=== PATIENT | female | born 1955 | race Hispanic/Latino ===

== ENCOUNTER 2021-07-04 20:52 | Emergency (ER) | payer BC, OTHER ==
--- OUTSIDE RECORDS SUMMARY | 2021-07-04 20:55 | XMS REPORT | Clinical Summary ---
:1955 Author Organization [facility] MD [facility] Address [address] [place] [address] Care Team Providers Name Role Phone Otilia Garcia NP Primary Care Provider Allergies No known active allergies Medications Medication Sig Dispensed Refills Start Date End Date Status atorvastatin (LIPITOR) Take 40 mg by 0 Active 40 mg tablet mouth daily. gabapentin (NEURONTIN) daily. 0 01/15/2021 Active 400 mg capsule Linzess 145 mcg capsule 0 07/29/2020 Active tiZANidine (ZANAFLEX) 4 daily. 0 01/30/2021 Active mg tablet Active Problems Problem Noted Date Personal history of malignant neoplasm of breast 11/08 Sinus node dysfunction 07/31/2015 Encounters Date Type Specialty Care Team Description 02/18/2021 Office Visit Survivorship - Breast Kelsey Garcia Person al history of [place] malignant neopl asm of breast 02/18/2021 Ancillary Procedure Radiology Kelsey Garcia Personal history of [place] malignant neopl asm of breast 02/18/2021 Travel after 07/04/2020 Surgical History Surgery Date Site/Laterality Comments MASTECTOMY 04/25/2008 - Right 04/24/2009 SECTION, CLASSIC SHOULDER SURGERY Left COLONOSCOPY [id number] At an outside fa cility HYSTERECTOMY Medical History Medical History Date Comments Hypercholesterolemia Breast cancer Family History Medical History Relation Name Comments Breast cancer Sister Relation Name Status Comments Sister Social History Tobacco Use Types Packs/Day Years Used Date Former Smoker Cigarettes Quit: 2008 Smokeless Tobacco: Never Used Alcohol Use Standard Drinks/Week Comments Yes 0 (1 standard drink = 0.6 oz pure alcoho l) Occasional Alcohol Habits Answer Date Recorded How often do you have a drink containing alcohol? Not asked How many drinks containing alcohol do you have on a typical Not asked day when you are drinking? How often do you have six or more drinks on one occasion? No t asked Comment: Occasional 11/08/2018 Sex Assigned at Date Recorded Not on file Job Start Date Occupation Industry Not on file Not on file Not on file Obstetrics History Last Filed Vital Signs Vital Sign Reading Time Taken Comments Blood Pressure 137/75 02/18/2021 3:40 PM CDT Pulse 66 02/18/2021 3:40 PM CDT Temperature - - Respiratory Rate 16 02/18/2021 3:40 PM CDT Oxygen Saturation - - Inhaled Oxygen Concentration - - Weight 64.5 kg (142 lb 3.2 oz) 02/18/2021 3:40 PM CDT Height 161 cm (5' 3.39") 02/18/2021 3:40 PM CDT Body Mass Index 24.88 02/18/2021 3:40 PM CDT Plan of Treatment Health Maintenance Due Date Last Done Comments COVID-19 Vaccination (1) 02/21/1961 Procedures Procedure Name Priority Date/Time Associated Diagnosis Comme nts MAMMO DIGITAL Routine 02/18/2021 3:20 PM Personal history of Results for this SCREENING LEFT W CDT malignant neoplasm proce malia are in RODRIGO of breast the results section. after 07/04/2020 Results Mammography Digital Screening Left with Rodrigo (02/18/2021 3:20 PM CDT) Specimen Impressions MAGVIEW - 02/18/2021 3:24 PM CDT There is no mammographic evidence of malignancy. Follow-up mammogram in 1 year is recomme nded. BI-RADS Category 2: Benign Finding(s) Narrative MAGVIEW - 02/18/2021 3:24 PM CDT CLINICAL INDICATION: Patient is a 65 year old female and is s een for screening. MAMMO DIGITAL SCREENING LEFT W RODRIGO Digital Mammogram evaluated with Compute r Aided Detection (CAD). COMPARISON: The present examination has been compare d to prior imaging studies performed at an outside location on 10/14/2015 and , and at [facility] on 11/08/2018, 11/21 and 02/13/2020. FINDINGS: There are scattered areas of fibroglandu lar density. There is a retro-pectoral silicone gel i mplant in the left breast. No dominant mass, suspicious calcificati ons, or architectural distortion is identified. Tomosynthesis performed in CC and MLO pr ojections. Procedure Note Myrna Eddy MD - 02/18/2021 CLINICAL INDICATION: Patient is a 65 year old female and is s een for screening. MAMMO DIGITAL SCREENING LEFT W RODRIGO Digital Mammogram evaluated with Compute r Aided Detection (CAD). COMPARISON: The present examination has been compare d to prior imaging studies performed at an outside location on 10/14/2015 and , and at [facility] on 11/08/2018, 11/21 and 02/13/2020. FINDINGS: There are scattered areas of fibroglandu lar density. There is a retro-pectoral silicone gel i mplant in the left breast. No dominant mass, suspicious calcificati ons, or architectural distortion is identified. Tomosynthesis performed in CC and MLO pr ojections. IMPRESSION: There is no mammographic evidence of mal ignancy. Follow-up mammogram in 1 year is recomme nded. BI-RADS Category 2: Benign Finding(s) Performing Organization Address City/State/ZIP Code Phon e Number [id number] after 07/04/2020 Insurance Payer Benefit Plan Subscriber ID Effective Phone Address Typ e / Group Dates MEDICARE MEDICARE PART [id number] 2021-Pres [phone] [facility] Medicare A AND B ent [address] SOLUTIONS [address] [place] [address] BLUE [place] PPO [id number] 2019-Prese [address] PPO [place] POS [place] [address] [place] [address] Guarantor Name Account Type Relation to Date of Phone Billing Patient Address Day,José Miguel Shelton Personal/Family Self 1955 [address] (Home) [place] [address] Day,José Miguel Shelton Personal/Family Self 1955 [address] [place] [address] José Miguel Wong Personal/Family Self 1955 [address] [place] [address] Care Teams 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
--- OUTSIDE RECORDS SUMMARY | 2021-07-04 20:55 | XMS REPORT | Continuity of Care Document ---
:[address] [facility] t Address [address] [place] [address] Care Team Providers Name Role Phone [phone] Primary Care Physician Unavailable Otilia Terrell NP Attending Clinician Otilia TERRELL Attending Clinician Unavailable Payers Payer Name Policy Type Policy Effective Date Expiration Date Sour ce Number MEDICAREMEDICARE PART [id number] 2021 MD Jan Perez AND 00:00:00 [id number] 2020- [phone] [address] [facility] [address]Medicare BLUE CROSS BLUE [id number] 2019 MD [facility] PPO 8 00:00:00 [id number] 0-[address], [place] [address]IYQ Problems Condition Condition Condition Status Onset Resolution Last Treating Co mments Source Name Details Category Date Date Treatment Clinician Date Personal Personal Disease Active history of history of 7-17 An derso malignant malignant 00:00: n neoplasm neoplasm 00 of breast of breast Sinus node Sinus node Disease Active Wes Ron dysfunctio dysfunctio 4-07 An derso n n 00:00: n 00 Allergies, Adverse Reactions, Alerts This patient has no known allergies or adverse reactions. Family History Family Member Diagnosis Comments Start Date Stop Date Source Natural sister Breast cancer MD Cliff lemos Social History Social Habit Start Date Stop Date Quantity Comments Source History [facility] MD [place] Alcohol Frequency History ARINADE MD [place] Alcohol Std Drinks History [facility] MD [place] Alcohol Binge History of tobacco Current smoker MD [place] use Alcohol intake 2021-02-25 2021-02-25 Current drinker of MD Montoya 00:00:00 00:00:00 alcohol (finding) History SDDE 2018-11-08 2018-11-08 Occasional MD [place] Alcohol Comment 00:00:00 00:00:00 Tobacco use and 2018-11-08 2018-11-08 Smokeless tobacco MD Montoya exposure 00:00:00 00:00:00 non-user Sex Ass[birth year] At [birth year] MD Arevalo on 00:00:00 00:00:00 Smoking Status Start Date Stop Date Source Ex-smoker 2018-11-08 00:00:00 2018-11-08 00:00:00 MD Clinton marquez Medications Ordered Filled Start Stop Current Ordering Indication Dosage Frequency Signature Comments Components Source Medication Medication Date Date Medication? Clinician (SIG) Name Name atorvastati Yes 40mg Take 40 mg MD serna (LIPITOR) 2-11 by mouth Cliff rso 40 mg 03:43: daily. n tablet 09 tiZANidine 2020-04 Yes daily. (ZANAFLEX) 0-08 Anderso 4 mg tablet 00:00: n 00 gabapentin Yes daily. (NEURONTIN) 9-23 Anderso 400 mg 00:00: n capsule 00 Linzess 145 Yes mcg capsule 4-06 Anderso 00:00: n 00 Vital Signs Vital Name Observation Time Observation Value Comments Source Systolic blood pressure 2021-02-18 20:40:00 137 mm[Hg] MD Montoya Diastolic blood pressure 2021-02-18 20:40:00 75 mm[Hg] MD Montoya Heart rate 2021-02-18 20:40:00 66 /min MD Clinton marquez Respiratory rate 2021-02-18 20:40:00 16 /min MD Ana castellano Body height 2021-02-18 20:40:00 161 cm MD Clinton marquez Body weight 2021-02-18 20:40:00 64.5 kg MD Clinton marquez BMI 2021-02-18 20:40:00 24.88 kg/m2 MD Clinton marquez Procedures Procedure Date / Time Performed Performing Clinician Sourc e MAMMO DIGITAL SCREENING LEFT W 2021-02-18 20:20:00 Kelsey Terrell MD Plan of Care Planned Activity Planned Date Details Comments Source Future Scheduled Test 1961-02-21 00:00:00 COVID-19 Vaccination MD Montoya (1) [code = COVID-19 Vaccination (1)] Encounters Start End Encounter Admission Attending Care Care Encounter Source Date/Time Date/Time Type Type Clinicians Facility Department ID 2021-02-18 2021-02-18 Outpatient KELSEY FOURNIER AIRAM ALEGRIA [id number] 15:27:05 16:07:50 Mickey o n 2021-02-18 2021-02-18 Outpatient KELSEY FOURNIER AIRAM ALEGRIA [id number] 13:52:51 13:52:51 Mickey o kareem 2020-02-13 2020-02-13 Outpatient KELSEY FOURNIER AIRAM ALEGRIA [id number] 11:18:27 11:18:27 Mickey o kareem 2020-02-13 2020-02-13 Outpatient KELSEY FOURNIER AIRAM ALEGRIA [id number] 09:57:18 11:14:39 Mickey o n Results This patient has no known results.
[2021-07-04 21:09] LABS: Urine Blood Negative (Negative); Urine Glucose Negative (Negative); Urine Protein Negative (Negative)
[2021-07-04] MEDS ORDERED: MORPHINE 4 MG/ML SYR ONE (22:08)
[2021-07-04] MEDS ORDERED: ONDANSETRON 4 MG/2 ML VIAL ONE (22:08)
[2021-07-04 22:17] LABS: Absolute Lymphocytes (CBC) 2.3 K/uL (0.7-4.9); Lymphocytes % 25.8 % (15.3-44.8); MPV 7.6 fL (7.6-11.3); RBC Red Blood Cell Count 4.08 M/uL (3.86-4.86)
[2021-07-04 22:34] LABS: ALT/SGPT 15 U/L (12-78); AST/SGOT 14 U/L (15-37); Albumin 3.6 g/dL (3.4-5.0); Alkaline Phosphatase 120 U/L (45-117); BUN Blood Urea Nitrogen 14 mg/dL (7-18); Bicarbonate 28 mmol/L (21-32); Bilirubin Total 0.3 mg/dL (0.2-1.0); Glucose Level 98 mg/dL (74-106); Lipase 77 U/L (73-393); Protein, Total 7.4 g/dL (6.4-8.2); Sodium Level 140 mmol/L (136-145)
[2021-07-04 22:35] LABS: Bilirubin Direct < 0.1 mg/dL (0-0.2)
--- NOTE | 2021-07-05 00:40 | EDPHYS ---
Physician Documentation [facility] Damari Name: José Miguel Wong Age: 66 yrs Sex: Female : 1955 Arrival Date: 07/04/2021 Time: 20:56 Bed 17 Private MD: ED Physician Don Alexander HPI: 07/04 21:06 This 66 yrs old Female presents to ER via Ambulatory with complaints of Pain jmm With Urination. 21:06 The patient presents with abdominal pain. Onset: The symptoms/episode began/occurred jmm gradually, 2 week(s) ago. The symptoms do not radiate. Associated signs and symptoms: Pertinent positives: dysuria. The symptoms are described as achy. Modifying factors: The symptoms are alleviated by nothing, the symptoms are aggravated by nothing. The patient has experienced similar episodes in the past. Historical: - Allergies: 21:42 No Known Allergies; lr4 - Home Meds: 21:42 pravastatin 20 mg oral tab 1 tab once daily for hyperlipidemia [Active]; lr4 - PMHx: 21:42 Hypercholesterolemia; lr4 - PSHx: 21:42 Appendectomy; hysterectomy; mastectomy with reconstruction; lr4 - Immunization history:: Adult Immunizations not up to date, Client reports having NOT received the Covid vaccine. Pneumococcal vaccine is not up to date, Flu vaccine is not up to date. - Social history:: Smoking status: Patient denies any tobacco usage or history of. ROS: 21:06 Constitutional: Negative for fever, chills, and weight loss, Cardiovascular: Negative jmm for chest pain, palpitations, and edema, Respiratory: Negative for shortness of breath, cough, wheezing, and pleuritic chest pain. 21:06 Abdomen/GI: Positive for abdominal pain. 21:06 All other systems are negative. Exam: 21:06 Constitutional: This is a well developed, well nourished patient who is awake, alert, jmm and in no acute distress. Head/Face: atraumatic. Eyes: EOMI, no conjunctival erythema appreciated ENT: Moist Mucus Membranes Neck: Trachea midline, Supple Chest/axilla: Normal chest wall appearance and motion. Cardiovascular: Regular rate and rhythm. No edema appreciated Respiratory: Normal respirations, no respiratory distress appreciated 21:06 Back: Normal ROM Skin: General appearance color normal MS/ Extremity: Moves all extremities, no obvious deformities appreciated, no edema noted to the lower extremities Neuro: Awake and alert Psych: Behavior is normal, Mood is normal, Patient is cooperative and pleasant 21:06 Abdomen/GI: Inspection: abdomen appears normal, Bowel sounds: normal, Palpation: soft, mild abdominal tenderness, in the right lower quadrant and left lower quadrant. Vital Signs: 21:10 BP 137 / 72; Pulse 75; Resp 18; Temp 99.1(O); Pulse Ox 96% on R/A; Weight 63.5 kg; lr4 Height 5 ft. 4 in. (162.56 cm); Pain 10/10; 23:33 BP 116 / 61; Pulse 74; Resp 18; Pulse Ox 95% on R/A; lr4 07/05 00:55 BP 126 / 68; Pulse 73; Resp 17 S; Pulse Ox 97% on R/A; lg3 07/04 21:10 Body Mass Index 24.03 (63.50 kg, 162.56 cm) lr4 MDM: 07/04 21:13 Patient medically screened. [facility] 07/05 00:39 Data reviewed: vital signs, nurses notes. Counseling: I had a detailed discussion with [facility] the patient and/or guardian regarding: the historical points, exam findings, and any diagnostic results supporting the discharge/admit diagnosis, lab results, radiology results, the need for outpatient follow up, to return to the emergency department if symptoms worsen or persist or if there are any questions or concerns that arise at home. ED course: Patient is alert and nontoxic in appearance in the ED. CT did reveal to have mild sigmoid diverticulitis. Patient advised to follow-up with PCP, GI for further evaluation otherwise given strict return precautions. Patient understood and agrees plan of care.. 07/04 21:06 Order name: Urine Culture [facility] 07/04 21:09 Order name: Urine Dipstick-Ancillary; Complete Time: 21:13 [facility] 07/04 21:58 Order name: Basic Metabolic Panel; Complete Time: 22:56 [facility] 07/04 21:58 Order name: CBC with Diff; Complete Time: 22:56 [facility] 07/04 21:58 Order name: Hepatic Function; Complete Time: 22:56 [facility] 07/04 21:58 Order name: Lipase; Complete Time: 22:56 [facility] 07/04 21:06 Order name: Urine Dipstick-Ancillary (obtain specimen); Complete Time: 21:48 [facility] 07/04 21:59 Order name: CT Abd/Pelvis - IV Contrast Only [facility] 07/04 21:58 Order name: IV Saline Lock; Complete Time: 22:02 [facility] 07/04 21:58 Order name: Labs collected and sent; Complete Time: 22:02 [facility] Administered Medications: 07/04 22:06 Drug: Zofran (Ondansetron) 4 mg Route: IVP; Site: left antecubital; lr4 23:32 Follow up: Response: Nausea is decreased lr4 22:07 Drug: morphine 4 mg Route: IVP; Site: left antecubital; lr4 23:32 Follow up: Response: No adverse reaction; Pain is decreased lr4 07/05 00:54 Drug: Flagyl (metroNIDAZOLE) 500 mg Route: PO; lg3 00:54 Follow up: Response: No adverse reaction lg3 00:54 Drug: Powell (HYDROcodone-acetaminophen) 5 mg-325 mg 1 tabs Route: PO; lg3 00:54 Follow up: Response: No adverse reaction; RASS: Alert and Calm (0) lg3 00:54 Drug: Bentyl (dicyclomine) 20 mg Route: PO; lg3 00:54 Follow up: Response: No adverse reaction lg3 00:55 Drug: LevaQUIN (levofloxacin) 750 mg Route: PO; lg3 00:55 Follow up: Response: No adverse reaction lg3 Disposition: 03:08 Co-signature as Attending Physician, Don Alexander MD I agree with the assessment and rn plan of care. Attestation: The patient's history, exam findings, diagnostics, and a summary of any interventions or procedures was reviewed in detail with Yogi TURNER. Disposition Summary: 07/05/21 00:40 Discharge Ordered Location: Home [facility] Condition: Stable [facility] Diagnosis - Sigmoid diverticulitis [facility] Followup: [facility] - With: Private Physician - When: 2 - 3 days - Reason: Recheck today's complaints, Continuance of care, Re-evaluation by your physician Discharge Instructions: - Discharge Summary Sheet [facility] - Diverticulitis, [id number] [facility] Forms: - Medication Reconciliation Form [facility] - Thank You Letter [facility] - Antibiotic Education [facility] - Prescription Opioid Use [facility] Prescriptions: - Flagyl 500 mg Oral Tablet - take 1 tablet by ORAL route every 6 hours for 10 days; 40 tablet; Refills: 0, jm Product Selection Permitted - Ultracet 37.5-325 mg Oral Tablet - take 1 tablet by ORAL route every 6 hours - for up to 5 days; do not exceed 8 jmm tablets per day.; 12 tablet; Refills: 0, Product Selection Permitted - dicyclomine 20 mg Oral Tablet - take 1 tablet by ORAL route 4 times per day; 30 tablet; Refills: 0, Product jmm Selection Permitted - levofloxacin 750 mg Oral Tablet - take 1 tablet by ORAL route once daily; 10 tablet; Refills: 0, Product jmm Selection Permitted Signatures: Dispatcher [employer] Yogi Spangler PA PA jmm Nieto, Roman, MD MD rn Gibson, Lacie, RN RN lg3 Yecenia Ashton RN RN lr4
--- NOTE | 2021-07-05 00:40 | ER ---
Nurse's Notes [facility] Damari Name: José Miguel Wong Age: 66 yrs Sex: Female : 1955 Arrival Date: 07/04/2021 Time: 20:56 Bed 17 Private MD: Diagnosis: Sigmoid diverticulitis Presentation: 07/04 21:10 Chief complaint: Patient states: Burning, frequency, urgency with urination x 2 wks, lr4 then abdominal pain starting today. Pt abdomen is ttp. Coronavirus screen: Vaccine status: Patient reports being unvaccinated. Patient reports having had a previously documented Covid positive illness. January 2021 Client denies travel out of the [place] in the last 14 days. At this time, the client does not indicate any symptoms associated with coronavirus-19. Ebola Screen: Patient negative for fever greater than or equal to 101.5 degrees Fahrenheit, and additional compatible Ebola Virus Disease symptoms. 21:10 Method Of Arrival: Ambulatory lr4 21:10 Initial Sepsis Screen: Does the patient meet any 2 criteria? No. Patient's initial lr4 sepsis screen is negative. Does the patient have a suspected source of infection? Yes: Dysuria/Frequency/Urgency/UTI. Risk Assessment: Do you want to hurt yourself or someone else? Patient reports no desire to harm self or others. Onset of symptoms was June 21, 2021. 21:10 Acuity: KENNETH 3 lr4 Triage Assessment: 21:42 General: Appears in no apparent distress. uncomfortable, Behavior is calm, cooperative. lr4 Pain: Complains of pain in abdomen Pain currently is 10 out of 10 on a pain scale. Quality of pain is described as tender, Pain began 1 day ago. Is continuous, Aggravated by increased activity, repositioning. Neuro: No deficits noted. Cardiovascular: No deficits noted. Respiratory: No deficits noted. GI: Reports lower abdominal pain, upper abdominal pain. : Urine is clear, Last void was July 04, 2021. Reports burning with urination, urgency, urinary frequency. Historical: - Allergies: 21:42 No Known Allergies; lr4 - Home Meds: 21:42 pravastatin 20 mg oral tab 1 tab once daily for hyperlipidemia [Active]; lr4 - PMHx: 21:42 Hypercholesterolemia; lr4 - PSHx: 21:42 Appendectomy; hysterectomy; mastectomy with reconstruction; lr4 - Immunization history:: Adult Immunizations not up to date, Client reports having NOT received the Covid vaccine. Pneumococcal vaccine is not up to date, Flu vaccine is not up to date. - Social history:: Smoking status: Patient denies any tobacco usage or history of. Screenin:46 Abuse screen: Denies threats or abuse. Nutritional screening: No deficits noted. lr4 Tuberculosis screening: No symptoms or risk factors identified. Fall Risk None identified. Assessment: 21:24 General: Appears in no apparent distress. comfortable, Behavior is calm, cooperative. lr4 Pain: Complains of pain in abdomen Pain currently is 8 out of 10 on a pain scale. Neuro: No deficits noted. Cardiovascular: No deficits noted. Respiratory: No deficits noted. GI: Reports lower abdominal pain. : Reports burning with urination, cramping, discharge, from vagina that is urgency, urinary frequency, foul smell with urine. Vital Signs: 21:10 BP 137 / 72; Pulse 75; Resp 18; Temp 99.1(O); Pulse Ox 96% on R/A; Weight 63.5 kg; lr4 Height 5 ft. 4 in. (162.56 cm); Pain 10/10; 23:33 BP 116 / 61; Pulse 74; Resp 18; Pulse Ox 95% on R/A; lr4 03 00:55 BP 126 / 68; Pulse 73; Resp 17 S; Pulse Ox 97% on R/A; lg3 07/04 21:10 Body Mass Index 24.03 (63.50 kg, 162.56 cm) lr4 ED Course: 07/04 20:56 Patient arrived in ED. 20:56 Yogi Davis PA is PHCP. jmm 20:56 Don Alexander MD is Attending Physician. jmm 21:24 Yecenia Ashton RN is Primary Nurse. lr4 21:25 Inserted saline lock: 20 gauge in left antecubital area, using aseptic technique. lr4 21:42 Triage completed. lr4 21:46 Arm band placed on left wrist. lr4 21:46 Patient has correct armband on for positive identification. Bed in low position. Call lr4 light in reach. Adult w/ patient. Door closed. Noise minimized. Head of bed elevated. 21:46 No provider procedures requiring assistance completed. lr4 23:22 CT Abd/Pelvis - IV Contrast Only In Process Unspecified. EDMS 23:53 Report given to Rosemary florence. lr4 07/05 00:55 IV discontinued, intact, bleeding controlled, No redness/swelling at site. Pressure lg3 dressing applied. Administered Medications: 07/04 22:06 Drug: Zofran (Ondansetron) 4 mg Route: IVP; Site: left antecubital; lr4 23:32 Follow up: Response: Nausea is decreased lr4 22:07 Drug: morphine 4 mg Route: IVP; Site: left antecubital; lr4 23:32 Follow up: Response: No adverse reaction; Pain is decreased lr4 03 00:54 Drug: Flagyl (metroNIDAZOLE) 500 mg Route: PO; lg3 00:54 Follow up: Response: No adverse reaction lg3 00:54 Drug: Barnum (HYDROcodone-acetaminophen) 5 mg-325 mg 1 tabs Route: PO; lg3 00:54 Follow up: Response: No adverse reaction; RASS: Alert and Calm (0) lg3 00:54 Drug: Bentyl (dicyclomine) 20 mg Route: PO; lg3 00:54 Follow up: Response: No adverse reaction lg3 00:55 Drug: LevaQUIN (levofloxacin) 750 mg Route: PO; lg3 00:55 Follow up: Response: No adverse reaction lg3 Outcome: 07/04 21:47 Condition: stable lr4 07/05 00:40 Discharge ordered by . jmsherif 00:55 Discharged to home ambulatory, with family. lg3 00:55 Condition: stable 00:55 Discharge instructions given to patient, Instructed on discharge instructions, follow up and referral plans. medication usage, Prescriptions given X 4. 00:56 Patient left the ED. lg3 Signatures: Dispatcher [employer] EDMS Yogi Davis PA PA jmm Gibson, Lacie RN RN lg3 Minda Welch Lashaunda, RN RN lr4
[2021-07-05] MEDS ORDERED: HYDROCODONE/APAP 5/325 MG TAB ONE (00:47)
[2021-07-05] MEDS ORDERED: metroNIDAZOLE 500 MG TABLET ONE (00:47)
[2021-07-05] MEDS ORDERED: levoFLOXacin 750 MG TAB ONE (00:47)
[2021-07-05] MEDS ORDERED: DICYCLOMINE HCL 10 MG CAP ONE (00:48)
[2021-07-05 03:07] VITALS: TEMP 99.1
[2021-07-05 03:09] VITALS: BP 126/68; O2SAT 97
--- NOTE | 2021-07-06 11:37 | RAD REPORT ---
EXAM DESCRIPTION: CT - Abdomen Pelvis W Contrast - 07/05/2021 6:41 am CLINICAL HISTORY: The patient is 66 years old and is Female; lower abdominal pain TECHNIQUE: Axial computed tomography images of the abdomen and pelvis with intravenous contrast. S agittal and coronal reformatted images were created and reviewed. This CT exam was performed using one or more of the following dose reduction techniques: automated exposure control, adjustment of t he mA and/or kV according to patient size, and/or use of iterative reconstruction technique. COMPARISON: No relevant prior studies available. FINDINGS: Lung bases: Unremarkable. No mass. No consolidation. ABDOMEN: Liver: 1.5 cm cyst in the left liver. Gallbladder and bile ducts: Unremarkable. No calcified stones. No ductal dilation. Pancreas: Unremarkable. No mass. No ductal dilation. Spleen: Unremarkable. No splenomegaly. Adrenals: Unremarkable. No mass. Kidneys and ureters: Unremarkable. No solid mass. No hydronephrosis. Stomach and bowel: Sigmoid diverticula with adjacent inflammatory changes in the lower abdomen/p freedom suggestive of acute diverticulitis. No evidence of perforation or abscess. Scattered colonic diverticula. No obstruction. PELVIS: Appendix: No findings to suggest acute appendicitis. Bladder: Unremarkable. No mass. Reproductive: Unremarkable as visualized. ABDOMEN and PELVIS: Intraperitoneal space: Unremarkable. No free air. No significant fluid collection. Bones/joints: Posterior noe and screw fixation from L3 through L5. No acute fracture. No dislocation. Soft tissues: Bilateral breast implants. Postsurgical changes in the anterior abdominal wall. Subcutaneous fat stranding in the soft tissues of the lower back. Vasculature: Scattered atherosclerotic vascular calcifications. No abdominal aortic aneurysm. Lymph nodes: Unremarkable. No enlarged lymph nodes. IMPRESSION: Sigmoid diverticula with adjacent inflammatory changes in the lower abdomen/pelvis sugge stive of acute diverticulitis. No evidence of perforation or abscess. Electronically signed by: Kin Woodall MD 07/04/2021 11:47 PM DYNAMO TENDER Due to temporary technical issues with the PACS/Fluency reporting system, reports are being signed by the in house radiologist without review as a courtesy to ensure prompt reporting. The interpreting r adiologist is fully responsible for the content of the report.
== END 2021-07-05 00:56 | disposition home or self-care (01) ==
LOC: ER 20:52
DX: K57.32 Diverticulitis of large intestine without perforation or abscess without bleeding (principal); R30.0 Dysuria; E78.5 Hyperlipidemia, unspecified
CPT/HCPCS: 87088; 85025; 87086; 80048; 36415; 80076; 81003; 83690; 74177; 96375; 96374; 99284; Q9967; J2405

== ENCOUNTER 2022-01-12 16:48 | Emergency (ER) | payer BC, OTHER ==
[2022-01-12] MEDS ORDERED: HYDROCODONE/APAP 7.5/325 MG TAB ONE (17:38)
--- NOTE | 2022-01-12 18:18 | RAD REPORT ---
EXAM DESCRIPTION: RAD - Lumbar Spine 3 Views - 01/12/2022 5:55 pm CLINICAL HISTORY: Back pain FINDINGS: Posterior fusion L3-L5. Hardware appears intact. No fracture or dislocation. Osteoporosis. Mild spondylosis
--- NOTE | 2022-01-12 18:19 | RAD REPORT ---
EXAM DESCRIPTION: RAD - Hip Left 2 View - 01/12/2022 5:55 pm CLINICAL HISTORY: Left hip pain FINDINGS: No fracture or dislocation is seen. Minimal osteoarthritis left hip
--- NOTE | 2022-01-12 20:00 | EDPHYS ---
Physician Documentation [facility] Name: José Miguel Wong Age: 66 yrs Sex: Female : 1955 Arrival Date: 01/12/2022 Time: 16:51 Bed 11 Private MD: Blake Lopez T ED Physician Sera Abbey HPI: 01/12 23:56 This 66 yrs old Female presents to ER via Ambulatory with complaints of Fall kb Injury, Hip Pain, Leg Pain. 23:56 Details of fall: The patient fell from an upright position, while walking. Onset: The kb symptoms/episode began/occurred 9 day(s) ago. Associated injuries: The patient sustained left hip and low back area, painful injury. Severity of symptoms: At their worst the symptoms were moderate, in the emergency department the symptoms are unchanged. The patient has not experienced similar symptoms in the past. The patient has not recently seen a physician. Historical: - PMHx: 17:25 Hypercholesterolemia; ss - PSHx: 17:25 Appendectomy; hysterectomy; mastectomy with reconstruction; right; ss - Immunization history:: Adult Immunizations up to date. - Social history:: Smoking status: Patient denies any tobacco usage or history of. ROS: 23:55 Constitutional: Negative for fever, chills, and weight loss. kb 23:55 Back: Positive for pain at rest, pain with movement, of the low back area. 23:55 MS/extremity: Positive for pain, of the left hip. 23:55 All other systems are negative. Exam: 23:55 Constitutional: This is a well developed, well nourished patient who is awake, alert, kb and in no acute distress. Head/Face: Normocephalic, atraumatic. ENT: Moist Mucous membranes Cardiovascular: Regular rate and rhythm with a normal S1 and S2. No gallops, murmurs, or rubs. No pulse deficits. Respiratory: Respirations even and unlabored. No increased work of breathing. Talking in full sentences Skin: Warm, dry with normal turgor. Normal color. Neuro: Awake and alert, GCS 15, oriented to person, place, time, and situation. Moves all extremities. Normal gait. Psych: Awake, alert, with orientation to person, place and time. Behavior, mood, and affect are within normal limits. 23:55 Back: pain, that is moderate, of the low back area, ROM is normal, normal spinal alignment noted, vertebral tenderness, is appreciated at lumbar spine. 23:55 Musculoskeletal/extremity: Extremities: grossly normal except: noted in the left hip: pain, ROM: intact in all extremities, Circulation is intact in all extremities. Sensation intact. Weight bearing: able to fully bear weight. Vital Signs: 17:20 BP 163 / 83; Pulse 88; Resp 18; Temp 98.2; Pulse Ox 100% ; Weight 63.5 kg; Height 5 ft. ss 4 in. (162.56 cm); Pain 9/10; 19:50 BP 124 / 76; Pulse 68; Resp 20; Pulse Ox 100% ; jj7 17:20 Body Mass Index 24.03 (63.50 kg, 162.56 cm) ss MDM: 17:28 Patient medically screened. kb 23:55 Data reviewed: vital signs, nurses notes. Data interpreted: Pulse oximetry: on room air kb is 100 %. Interpretation: normal. Counseling: I had a detailed discussion with the patient and/or guardian regarding: the historical points, exam findings, and any diagnostic results supporting the discharge/admit diagnosis, radiology results, the need for outpatient follow up, a family practitioner, to return to the emergency department if symptoms worsen or persist or if there are any questions or concerns that arise at home. 01/12 17:26 Order name: Lumbar Spine (3 Views) XRAY; Complete Time: 18:21 snw 01/12 17:29 Order name: Hip Left 2 View XRAY; Complete Time: 18:21 kb Administered Medications: 17:20 Drug: [place] (HYDROcodone-acetaminophen) (7.5 mg-325 mg) 1 tabs Route: PO; jh5 20:17 Follow up: Response: No adverse reaction; Pain is decreased jj7 Disposition Summary: 01/12/22 20:00 Discharge Ordered Location: Home kb Condition: Stable kb Diagnosis - Pain in left hip kb - Low back pain kb Followup: kb - With: Emergency Department - When: As needed - Reason: Worsening of condition Followup: kb - With: Private Physician - When: 2 - 3 days - Reason: Recheck today's complaints, Continuance of care, Re-evaluation by your physician Discharge Instructions: - Discharge Summary Sheet kb - Musculoskeletal Pain kb Forms: - Medication Reconciliation Form kb - Thank You Letter kb - Antibiotic Education kb - Prescription Opioid Use kb Prescriptions: - Cyclobenzaprine 10 mg Oral Tablet - take 1 tablet by ORAL route every 8 hours As needed; 15 tablet; Refills: 0, kb Product Selection Permitted - Diclofenac Sodium 75 mg Oral tablet,delayed release (DR/EC) - take 1 tablet by ORAL route 2 times per day As needed; 30 tablet; Refills: 0, kb Product Selection Permitted Signatures: Dispatcher [employer] Jocelynn Morgan FNP-C FNP-Ckb Smirch, Shelby, RN RN ss Penny Fournier RN RN jh5 Yolanda Paulson RN jj7
--- NOTE | 2022-01-12 20:00 | ER ---
Nurse's Notes [facility] Name: José Miguel Wong Age: 66 yrs Sex: Female : 1955 Arrival Date: 01/12/2022 Time: 16:51 Bed 11 Private MD: Blake Lopez T Diagnosis: Pain in left hip;Low back pain Presentation: 01/12 17:20 Chief complaint: Patient states: A WEEK AGO pt walking to [employer] pushing a buggy and ss buggy dumped over, patient DID NOT fall and states she DID NOT hit the ground, but felt her body twist. She has the most pain in her back where she's had screws placed in the past, and in the left hip that goes all the way down to her leg to her foot. Pt states she has been taking advil and tylenol and it doesn't help. Coronavirus screen: Vaccine status: Patient reports being unvaccinated. Client denies travel out of the [place] in the last 14 days. Ebola Screen: Patient negative for fever greater than or equal to 101.5 degrees Fahrenheit, and additional compatible Ebola Virus Disease symptoms Patient denies exposure to infectious person. Patient denies travel to an Ebola-affected area in the 21 days before illness onset. Initial Sepsis Screen: Does the patient meet any 2 criteria? No. Patient's initial sepsis screen is negative. Does the patient have a suspected source of infection? No. Patient's initial sepsis screen is negative. Risk Assessment: Do you want to hurt yourself or someone else? Patient reports no desire to harm self or others. Onset of symptoms was January 03, 2022. 17:20 Method Of Arrival: Ambulatory ss 17:20 Acuity: KENNETH 3 ss Triage Assessment: 17:25 General: Appears uncomfortable, slender, well groomed, well developed, Behavior is ss calm, cooperative, appropriate for age. Pain: Complains of pain in back and left leg. Historical: - PMHx: 17:25 Hypercholesterolemia; ss - PSHx: 17:25 Appendectomy; hysterectomy; mastectomy with reconstruction; right; ss - Immunization history:: Adult Immunizations up to date. - Social history:: Smoking status: Patient denies any tobacco usage or history of. Screenin:50 Abuse screen: Denies threats or abuse. Nutritional screening: No deficits noted. jj7 Tuberculosis screening: No symptoms or risk factors identified. 20:11 Fall Risk None identified. jj7 Assessment: 19:50 Musculoskeletal: Reports pain in left hip that radiates down her leg. jj7 20:11 Reassessment: ASSUMED CARE OF PT. PT SITTING IN BED. WARM BLANKET PROVIDED. VS STABLE. jj7 DIONICIO DUNHAM AT BEDSIDE SPEAKING TO PT. DISCHARGE INSTRUCTIONS GIVEN PT VERBALIZED UNDERSTANDING. NO ADDITIONAL NEEDS AT THIS TIME. Vital Signs: 17:20 BP 163 / 83; Pulse 88; Resp 18; Temp 98.2; Pulse Ox 100% ; Weight 63.5 kg; Height 5 ft. ss 4 in. (162.56 cm); Pain 9/10; 19:50 BP 124 / 76; Pulse 68; Resp 20; Pulse Ox 100% ; jj7 17:20 Body Mass Index 24.03 (63.50 kg, 162.56 cm) ss ED Course: 16:51 Patient arrived in ED. am2 16:51 Blake Lopez MD is Private Physician. am2 17:25 Triage completed. ss 17:25 Arm band placed on right wrist. ss 17:28 Jocelynn Mata FNP-C is [facility]. kb 17:28 Abbey Zamora MD is Attending Physician. kb 17:57 Lumbar Spine (3 Views) XRAY In Process Unspecified. EDMS 17:57 Hip Left 2 View XRAY In Process Unspecified. EDMS 19:50 Patient has correct armband on for positive identification. Bed in low position. Call jj7 light in reach. 19:50 No provider procedures requiring assistance completed. jj7 20:14 Patient did not have IV access during this emergency room visit. jj7 Administered Medications: 17:20 Drug: [place] (HYDROcodone-acetaminophen) (7.5 mg-325 mg) 1 tabs Route: PO; jh5 20:17 Follow up: Response: No adverse reaction; Pain is decreased jj7 Medication: 19:50 VIS not applicable for this client. jj7 Outcome: 20:00 Discharge ordered by . kb 20:11 Discharged to home ambulatory, with significant other. jj7 20:11 Condition: good 20:11 Discharge instructions given to patient. 20:18 Patient left the ED. jj7 Signatures: Dispatcher [employer] EDMS Jocelynn Mata, FORGING ROLL OPERATOR-C FORGING ROLL OPERATOR-Ckb Ondina Otero RN RN ss Kizzy Lindsey am2 Penny Fournier RN RN jh5 Yolanda Paulson RN RN jj7 Corrections: (The following items were deleted from the chart) 17:27 17:20 Chief complaint: Patient states: A WEEK AGO pt walking to [employer] pushing a buggy ss and buggy dumped over, patient DID NOT fall, but felt her body twist. She has the most pain in her back where she's had screws placed in the past, and in the left hip that goes all the way down to her leg to her foot. Pt states she has been taking advil and tylenol and it doesn't help ss
[2022-01-14 02:22] VITALS: BP 124/76; O2SAT 100
[2022-01-14 02:48] VITALS: TEMP 98.2
== END 2022-01-12 20:18 | disposition home or self-care (01) ==
LOC: ER 16:48
DX: M25.552 Pain in left hip (principal); M54.50 Low back pain, unspecified
CPT/HCPCS: 72100; 99283

== ENCOUNTER 2022-11-27 18:17 | Emergency (ER) | payer BC, MEDICARE ==
--- OUTSIDE RECORDS SUMMARY | 2022-11-27 18:20 | XMS REPORT | Clinical Summary ---
:1955 Author Organization [facility] MD [facility] Center Address [address] [place] [address] Care Team Providers Name Role Phone Kelsey Garcia APRN Primary Care Provider Baldo Street MD Primary Care Provider Allergies No known active allergies Medications Medication Sig Dispensed Refills Start Date End Date Status atorvastatin Take 1 0 Active (LIPITOR) 40 mg tablet (40 tablet mg) by mouth daily. gabapentin daily. 0 01/15/2021 Active (NEURONTIN) 400 mg capsule tiZANidine daily. 0 01/30/2021 Active (ZANAFLEX) 4 mg tablet HYDROcodone-acetam Take 1 0 A ctive inophen (NORCO) 10 tablet by mg-325 mg per mouth as tablet needed. Linzess 145 mcg 0 07/29/2020 Dis continued capsule 3 (Therapy completed) Active Problems Problem Noted Date Personal history of malignant neoplasm of breast 11/08 Sinus node dysfunction 07/31/2015 Encounters Date Type Specialty Care Team Description 05/14/2022 Office Visit Survivorship - Breast Kelsey Garcia Person al history of JULIAN Bingham malignant neopl asm of breast 05/14/2022 Ancillary Procedure Radiology Kelsey Garcia Personal history of JULIAN Bingham malignant neopl asm of breast 05/14/2022 Telephone Cancer Prevention Annie Arce RN 05/14/2022 Orders Only Survivorship - Breast Kelsey Garcia APRN 05/14/2022 Travel after 11/27/2021 Surgical History Surgery Date Site/Laterality Comments MASTECTOMY 04/25/2008 - Right 04/24/2009 SECTION, CLASSIC SHOULDER SURGERY Left COLONOSCOPY 2404-4902 At an outside fa cility HYSTERECTOMY Medical History Medical History Date Comments Hypercholesterolemia Breast cancer Family History Medical History Relation Name Comments Breast cancer Sister Relation Name Status Comments Sister Social History Tobacco Use Types Packs/Day Years Used Date Smoking Tobacco: Former Cigarettes Quit : 2008 Smokeless Tobacco: Never Tobacco Cessation: Counseling Given: Not Answered Alcohol Use Standard Drinks/Week Comments Yes 0 (1 standard drink = 0.6 oz pure alcoho l) Occasional Sex Assigned at Date Recorded Not on file Job Start Date Occupation Industry Not on file Not on file Not on file Obstetrics History Para Term AB IAB SAB Ectopic Multiple Living Live Births 8 7 7 1 7 Date Outcome GA Total Labor/2nd/3rd Weight Sex Delivery Anes PTL Farideh A 1 A5 Name Clin Labor Term Term Term Term Term Term Term AB Last Filed Vital Signs Vital Sign Reading Time Taken Comments Blood Pressure 128/63 05/14/2022 10:41 AM BUSINESS ANALYST MANAGER Pulse 64 05/14/2022 10:41 AM BUSINESS ANALYST MANAGER Temperature - - Respiratory Rate - - Oxygen Saturation 99% 05/14/2022 10:41 AM BUSINESS ANALYST MANAGER Inhaled Oxygen Concentration - - Weight 64.5 kg (142 lb 3.2 oz) 05/14/2022 10:41 AM BUSINESS ANALYST MANAGER Height 161 cm (5' 3.39") 05/14/2022 10:41 AM BUSINESS ANALYST MANAGER Body Mass Index 24.88 05/14/2022 10:41 AM BUSINESS ANALYST MANAGER Plan of Treatment Date Type Specialty Care Team Description 05/17/2023 Ancillary Procedure Radiology Kelsey Garcia, SOIL EXPERT [address], [place] [address] (Wo rk) 05/17/2023 Office Visit Survivorship - Breast Liza Garcia, SOIL EXPERT [address] [place], [place] [address] (Wo rk) Health Maintenance Due Date Last Done Comments COVID-19 Vaccination (#1) 1955 Procedures Procedure Name Priority Date/Time Associated Diagnosis Comme nts MAMMO DIGITAL Routine 05/14/2022 10:24 AM Personal history of Results for this SCREENING LEFT W BUSINESS ANALYST MANAGER malignant neoplasm proce horacioe are in RODRIGO of breast the results section. after 11/27/2021 Results Mammography Digital Screening Left with Rodrigo (05/14/2022 10:24 AM BUSINESS ANALYST MANAGER) Anatomical Region Laterality Modality Breast Left Mammography Specimen (Source) Anatomical Collection Method Collection Time Re ceived Time Location / / Volume Laterality 05/14/2022 11:04 AM BUSINESS ANALYST MANAGER Impressions 05/14/2022 11:04 AM BUSINESS ANALYST MANAGER There is no mammographic evidence of malignancy. Follow-up mammogram in 1 year is recomme nded. BI-RADS Category 1: Negative Narrative 05/14/2022 11:04 AM BUSINESS ANALYST MANAGER CLINICAL INDICATION: Patient is a 67 year old female and is s een for screening. MAMMO DIGITAL SCREENING LEFT W RODRIGO Digital Mammogram evaluated with Compute r Aided Detection (CAD). COMPARISON: The present examination has been compare d to prior imaging studies performed at an outside location on 11/12/2016, and a [facility] on 11/08/2018, 11/21/2018, 02/13/2020 an d 02/18/2021. FINDINGS: There are scattered areas of fibroglandu lar density. There is a retro-pectoral silicone gel i mplant in the left breast. No dominant mass, distortion, or suspici ous calcifications are identified. Tomosynthesis performed in CC and MLO pr ojections. Procedure Note Savanna Mitchell MD - 05/14/2022 CLINICAL INDICATION: Patient is a 67 year old female and is s een for screening. MAMMO DIGITAL SCREENING LEFT W RODRIGO Digital Mammogram evaluated with Compute r Aided Detection (CAD). COMPARISON: The present examination has been compare d to prior imaging studies performed at an outside location on 11/12/2016, and a [facility] on 11/08/2018, 11/21/2018, 02/13/2020 an d 02/18/2021. FINDINGS: There are scattered areas of fibroglandu lar density. There is a retro-pectoral silicone gel i mplant in the left breast. No dominant mass, distortion, or suspici ous calcifications are identified. Tomosynthesis performed in CC and MLO pr ojections. IMPRESSION: There is no mammographic evidence of mal ignancy. Follow-up mammogram in 1 year is recomme nded. BI-RADS Category 1: Negative Kelsey Garcia APRN IMG MAMMOGRAPHY ORDERABLES after 11/27/2021 Insurance Payer Benefit Plan Subscriber ID Effective Phone Address Typ e / Group Dates MEDICARE MEDICARE PART [id number] 2021-Pres [phone] [employer] Medicare A AND B ent [address] [place] [phone] [employer] PPO [id number] 2019-Prese [address]PO BL[place] POS nt 377322 [place] [address] [address] (Home) [place] [phone] ,José Miguel Shelton Personal/Family Self 1955 [address] [place] [phone] ,José Miguel Shelton Personal/Family Self 1955 [address] (Home) [place] [address] Care Teams Coal Cutting Machine Operator Relationship Specialty Start Date End Date Kelsey Garcia APRN PCP - General Breast Medical Oncology 11/08/18 05/13/[address] [place] [address] MD PCP - General Breast Medical Oncology 05/14/[address] [place] [id number]
--- OUTSIDE RECORDS SUMMARY | 2022-11-27 18:20 | XMS REPORT | Continuity of Care Document ---
:1955 Author Organization [facility] t Address [address] [place] [address] Care Team Providers Name Role Phone [phone] Primary Care Physician Unavailable SYSTEM, PROVIDER NOT IN Attending Clinician Unavailable Kelsey Terrell APRN Attending Clinician KELSEY TERRELL Attending Clinician Unavailable Annie Arce RN Attending Clinician Unavailable Payers Payer Name Policy Type Policy Number Effective Date Expiration Date S ource Problems Condition Condition Condition Status Onset Resolution Last Treating Co mments Source Name Details Category Date Date Treatment Clinician Date Personal Personal Disease Active Unive rs history of history of 11-08 [place] 00 [place] of breast of [facility] Acute Acute Disease Active Method[facility] posthemorr posthemorr 07-30 st hagic hagic 00:00: Hospita anemia anemia 00 l Shortness Shortness Disease Active Met [facility] of breath of breath 07-30 00:00: Hospita 00 l Primary Primary Disease Active [facility] malignant malignant 07-30 st neoplasm neoplasm 00:00: Hospit a of female of female 00 l breast breast Pain Pain Disease Active [facility] 07-30 st 00:00: Hospita 00 l Diagnosis Diagnosis Disease Active Overview: Methodi unknown unknown 07-[address] 00:00: g of this Hospita 00 note l might be different from the original. Clinical Finding Sinus node Sinus node Disease Active U nivers dysfunctio dysfunctio 07-30 it y of n n 00:00: [place] 00 MD [facility] Malignant Malignant Disease Active Met hodi neoplasm neoplasm 2-15 st of breast of breast 00:00: Hosp sherry 00 l Allergies, Adverse Reactions, Alerts Allergy Allergy Status Severity Reaction(s) Onset Inactive Treating Comm ents Source Name Type Date Date Clinician Aspirin Propensi Active Methodi ty to 07-30 st adverse 00:00: Hospita reaction 00 l s to drug Erythrom Propensi Active Method i ycin ty to 07-30 Base adverse 00:00: Hospita reaction 00 l s to drug Family History Family Member Diagnosis Comments Start Date Stop Date Source Natural mother [facility] Maternal aunt [facility]arriages [facility] Maternal aunt [facility]aternal uncle Colon [facility] Natural sister Breast cancer [facility] [place] [facility] Social History Social Habit Start Date Stop Date Quantity Comments Source [facility] History of tobacco Current smoker Un iversity of use [facility] [place] Tobacco use and 2022-05-14 2022-05-14 Smokeless tobacco Un iversity of exposure 00:00:00 00:00:00 non-user Siva marquez [facility] Alcohol intake 2022-05-14 2022-05-14 Current drinker Unive rsity of 00:00:00 00:00:00 of alcohol [facility] Alcohol Comment 2018-11-08 2018-11-08 Occasional Univers[facility] of 00:00:00 00:00:00 Siva marquez [facility] History of Social 2017-08-02 2017-08-[address] function 00:00:00 00:00:00 Hospital Sex Ass[birth year] [facility] 00:00:00 00:00:00 Siva marquez [facility] Smoking Status Start Date Stop Date Source Ex-smoker 2022-05-14 00:00:00 2022-05-14 00:00:00 [facility] [place] [facility] Never smoked tobacco [facility] Medications Ordered Filled Start Stop Current Ordering Indication Dosage Frequency Signature Comments Components Source Medication Medication Date Date Medication? Clinician (SIG) Name Name HYDROcodone Yes 1{tbl} Take 1 Un jorge -acetaminop 1-20 tablet by ity of [place] (NORCO) 20:11[place] 10 mg-325 17 needed. MD mg per [facility] atorvastati Yes 40mg Take 1 Univ ers n (LIPITOR) 1-20 tablet (40 it y of 40 mg 10:43: mg) by [place] tablet 03 mouth MD daily. [facility] tiZANidine 2020-04 Yes daily. Unive rs (ZANAFLEX) 0-08 ity of 4 mg tablet 00:00: [place] [address] [facility] gabapentin Yes daily. Unive rs (NEURONTIN) 9-23 ity of 400 mg 00:00: [place] capsule [address] [facility] Linzess 145 Unive rs mcg capsule 4-06 -20 ity of 00:00: 00:00 [place] 00 :[address] [facility] etodolac Yes 500mg Q8H Take 500 Meth kathryn (LODINE) 4-[address] 300 MG 14:03: mouth Hospita capsule 20 every 8 l (eight) hours. escitalopra Yes 20mg QD Take 20 mg Methodi m (LEXAPRO) 4-[address] 20 MG 14:03: daily. Hospita tablet 20 l atorvastati Yes 40mg QD Take 40 mg Methodi n (LIPITOR) 4-[address] 40 MG 14:03: daily. Hospita tablet 20 l Vital Signs Vital Name Observation Time Observation Value Comments Source Systolic blood 2022-05-14 16:41:12 128 mm[Hg] Univer sity [facility] pressure [facility] Diastolic blood 2022-05-14 16:41:12 63 mm[Hg] [facility] [place] pressure [facility] Heart rate 2022-05-14 16:41:12 64 /min [facility] Body height 2022-05-14 16:41:12 161 cm [facility] Body weight 2022-05-14 16:41:12 64.5 kg [facility] Sidney Can [facility] BMI 2022-05-14 16:41:12 24.88 kg/m2 [facility] MD Montoya Can [facility] Oxygen saturation 2022-05-14 16:41:12 99 /min [facility] in Arterial blood MD [facility] Pulse oximetry Center Procedures Procedure Date / Time Performed Performing Clinician Sourc e MAMMO DIGITAL 2022-05-14 16:24:49 Kelsey Terrell [place] [facility] [place] SCREENING LEFT W KLEVER Montoya [facility] Plan of Care Planned Activity Planned Date Details Comments Source Future Scheduled 2022-11-24 [facility] Test 21:56:45 malignant neoplasm of colon (procedure) [code = 082295329] Future Scheduled 2022-11-24 [facility] Test 21:56:45 malignant neoplasm of colon (procedure) [code = 744649168] Future Scheduled 2022-11-24 [facility] Test 21:56:45 malignant neoplasm of colon (procedure) [code = [id number]] Future Scheduled 2022-11-24 COVID-19 VACCINE (#1) Me [facility] Test 21:56:45 [code = COVID-19 VACCINE (#1)] Future Scheduled 2022-11-24 [facility] Test 21:56:45 malignant neoplasm of colon (procedure) [code = 859823339] Future Scheduled 2022-11-24 [facility] Test 21:56:45 malignant neoplasm of colon (procedure) [code = 462073733] Future Scheduled 2022-11-24 SHINGLES VACCINES (1 [facility] Test 21:56:45 of 2) [code = SHINGLES VACCINES (1 of 2)] Future Scheduled 2022-11-24 BREAST CANCER [facility] Test 21:56:45 SCREENING [code = BREAST CANCER SCREENING] Future Scheduled 2022-11-24 65+ P[facility]OCOCCAL [facility] Test 21:56:45 VACCINE (1 - PCV) [code = 65+ PNEUMOCOCCAL VACCINE (1 - PCV)] Future Scheduled 2022-11-24 INFLUENZA VACCINE [facility] Test 21:56:45 [code = INFLUENZA VACCINE] Future Scheduled 2022-05-17 COVID-19 Vaccination [facility] [place] Test 08:12:26 (#1) [code = COVID-19 [facility] Vaccination (#1)] Center Encounters Start End Encounter Admission Attending Care Care Encounter Source Date/Time Date/Time Type Type Clinicians Facility Department ID 2022-09-28 Outpatient AIRAM GARRETT MDA [id number] 08:02:36 PROVIDER Mickey serna 2022-05-14 2022-05-14 Office Kelsey Terrell 1.2.840.1 [id number] [facility] [place] [facility] 10:30:00 11:00:00 Visit A. [id number] ity of 3.412.2.7 [place] .[id number] MD Zapata[address] [facility] 2022-05-14 2022-05-14 Outpatient KELSEY FOURNIER MDA, MDA [id number] 10:29:31 10:29:31 Mickeysuzy serna 2022-05-14 2022-05-14 Kelsey Cruz 1.2.840.1 [id number] [facility] [place] [facility] 09:45:00 10:20:00 Procedure A. 80969.1.1 it y of 3.412.2.7 [place] .[id number] MD Mathias [facility] 2022-05-14 2022-05-14 Outpatient KELSEY FOURNIER MDA, MDA [id number] 09:38:18 09:38:18 Mickey o kareem 2022-05-14 2022-05-14 Telephone Claude, 1.2.840.1 [id number] [facility] [place] [facility] 00:00:00 00:00:00 Annie 14393.1.1 ity of 3.412.2.7 [place] .3.018531 [facility] 2022-05-14 2022-05-14 Orders Kelsey Terrell 1.2.840.1 [id number] [facility] [place] [facility] 00:00:00 00:00:00 Only A. 04087.1.1 ity of 3.412.2.7 [place] .3.813361 MD Zapata[address] [facility] 2022-05-14 2022-05-14 Travel 1.2.840.1 [id number] [facility] [place] [facility] 00:00:00 00:00:00 [id number] ity of 3.412.2.7 2.2.7.3.698 [place] .3.843594 084.8 MD .8 [facility] 2021-02-18 2021-02-18 Outpatient KELSEY FOURNIER AIRAM MDA [id number] 15:27:05 16:07:50 Mickeysuyz serna 2021-02-18 2021-02-18 Outpatient KELSEY FOURNIER AIRAM MDA [id number] 13:52:51 13:52:51 Mickey serna 2020-02-13 2020-02-13 Outpatient KELSEY FOURNIER AIRAM MDA [id number] 11:18:27 11:18:27 Mickey o kareem 2020-02-13 2020-02-13 Outpatient KELSEY FOURNIER AIRAM MDA [id number] 09:57:18 11:14:39 Mickey serna Results This patient has no known results.
[2022-11-27 18:43] LABS: Urine Bilirubin Negative (Negative); Urine Blood 1+ (Negative); Urine Clarity Clear (Clear); Urine Color Yellow (Yellow); Urine Glucose Negative (Negative); Urine Protein Trace (Negative); Urine Urobilinogen 0.2 mg/dL (0.2-1.0); Urine pH 5.5 (5.0-7.0)
[2022-11-27 18:52] LABS: Urine Bacteria None Seen /HPF (<20); Urine Mucus Slight /HPF (None Seen); Urine RBC <5 /HPF (None Seen); Urine WBC Clump Occasional /HPF (None Seen)
[2022-11-27 19:04] LABS: Absolute Lymphocytes (CBC) 0.8 K/uL (0.7-4.9); Hematocrit 39.1 % (36.0-45.0); Lymphocytes % 8.9 % (15.3-44.8); MCV 94.9 fL (80-100); MPV 6.5 fL (7.6-11.3); RBC Red Blood Cell Count 4.12 M/uL (3.86-4.86)
[2022-11-27 19:17] LABS: Protime INR 0.99
[2022-11-27 19:19] LABS: Potassium 3.8 mEq/L (3.5-5.1)
[2022-11-27 19:21] LABS: Bilirubin Total 0.5 mg/dL (0.2-1.0)
[2022-11-27] MEDS ORDERED: ACETAMINOPHEN 500 MG TAB ONE (19:37)
[2022-11-27] MEDS ORDERED: NA CHLORIDE 0.9% 50 ML ONE (19:48)
[2022-11-27] MEDS ORDERED: CEFTRIAXONE 1000 MG/VIAL ONE (19:48)
[2022-11-27 19:50] LABS: SARS-CoV-2 Antigen Rapid Res Negative (Negative)
--- NOTE | 2022-11-27 20:28 | RAD REPORT ---
EXAM DESCRIPTION: CTAbdomen Pelvis W Contrast - 11/27/2022 8:21 pm CLINICAL HISTORY: Abdominal pain. FLANK PAIN COMPARISON: <Comparisons> TECHNIQUE: Biphasic CT imaging of the abdomen and pelvis was performed with 100 ml non-ionic IV cont rast. All CT scans are performed using dose optimization technique as appropriate and may include automated exposure control or mA/KV adjustment according to patient size. FINDINGS: Bilateral breast implants noted.Mild atelectasis noted in both lung bases. The liver contains a 16-17 mm cyst in the left lobe posteriorly. Spleen, pancreas, adrenal glands and kidneys are within normal limits. No bowel obstruction, free air, free fluid or abscess. Sigmoid diverticulosis coli without diverticul itis. The appendix is not identified as a discrete structure, however, no secondary findings of appen dicitis are identified. No evidence of significant lymphadenopathy. Lower lumbar spine hardware is noted. IMPRESSION: Sigmoid diverticulosis coli without diverticulitis.
[2022-11-27 20:29] LABS: Blood Morphology Comment NOT SEEN (NOT SEEN); Platelet Estimate ADEQ; White Blood Cell Scan OK (OK)
--- NOTE | 2022-11-27 21:04 | ER ---
Nurse's Notes [facility] [place] Name: José Miguel Wong Age: 67 yrs Sex: Female : 1955 Arrival Date: 11/27/2022 Time: 18:17 Bed 19 Private MD: Diagnosis: UTI/ Urinary tract infection, site not specified Presentation: 11/27 18:26 Chief complaint: Patient states: got the shakes and chills all of a sudden, was c/o uti iw symptoms two days ago , burning and frequency, also has low back pain. Coronavirus screen: Client presents with at least one sign or symptom that may indicate coronavirus-19. Ebola Screen: Patient negative for fever greater than or equal to 101.5 degrees Fahrenheit, and additional compatible Ebola Virus Disease symptoms Patient denies exposure to infectious person. Patient denies travel to an Ebola-affected area in the 21 days before illness onset. No symptoms or risks identified at this time. Risk Assessment: Do you want to hurt yourself or someone else? Patient reports no desire to harm self or others. Onset of symptoms was November 27, 2022. 18:26 Method Of Arrival: Wheelchair iw 18:26 Acuity: KENNETH 3 iw 19:10 Initial Sepsis Screen: Does the patient meet any 2 criteria? Temp <36.0*C (96.8*F)) or db > 38.3*C (100.9*F). HR > 90 bpm. Yes Does the patient have a suspected source of infection? No. Patient's initial sepsis screen is negative. Historical: - Allergies: 18:28 No Known Allergies; iw - PMHx: 18:28 Hypercholesterolemia; iw - PSHx: 18:28 Appendectomy; hysterectomy; mastectomy with reconstruction; right; iw - Immunization history:: Adult Immunizations. - Social history:: Smoking status: unknown. Screenin:45 [facility] ED Fall Risk Assessment (Adult) History of falling in the last 3 months, db including since admission No falls in past 3 months (0 pts) Confusion or Disorientation No (0 pts) Intoxicated or Sedated No (0 pts) Impaired Gait No (0 pts) Mobility Assist Device Used No (0 pt) Altered Elimination No (0 pt) Score/Fall Risk Level 0 - 2 = Low Risk Oriented to surroundings, Maintained a safe environment. Abuse screen: Denies threats or abuse. Denies injuries from another. Nutritional screening: No deficits noted. Tuberculosis screening: No symptoms or risk factors identified. Assessment: 18:45 Reassessment: Patient appears in no apparent distress at this time. Patient and/or db family updated on plan of care and expected duration. Pain level reassessed. Patient is alert, oriented x 3, equal unlabored respirations, skin warm/dry/pink. General: Appears in no apparent distress. uncomfortable, Behavior is cooperative, anxious. Pain: Denies pain. Neuro: Level of Consciousness is awake, alert, obeys commands, Oriented to person, place, time, situation. Respiratory: Airway is patent Respiratory effort is even, unlabored, Respiratory pattern is regular, symmetrical. 19:35 General: Appears uncomfortable, Behavior is calm, cooperative. Pain: Complains of pain ha1 in body aches Pain does not radiate. Pain currently is 8 out of 10 on a pain scale. Neuro: Level of Consciousness is awake, alert, obeys commands, Oriented to person, place, time, situation. Cardiovascular: Patient's skin is warm and dry. GI: Abdomen is flat, non-distended. : No signs and/or symptoms were reported regarding the genitourinary system. Musculoskeletal: Circulation, motion, and sensation intact. Range of motion: intact in all extremities. 20:35 Reassessment: Patient and/or family updated on plan of care and expected duration. Pain ha1 level reassessed. Patient is alert, oriented x 3, equal unlabored respirations, skin warm/dry/pink. Patient states symptoms have improved. 21:29 Reassessment: Patient and/or family updated on plan of care and expected duration. Pain ha1 level reassessed. Patient is alert, oriented x 3, equal unlabored respirations, skin warm/dry/pink. Patient states feeling better. Patient states symptoms have improved. Vital Signs: 18:28 BP 154 / 75; Pulse 94; Resp 18; Temp 102.4; Pulse Ox 96% on R/A; iw 18:36 Weight 62.6 kg; iw 19:30 BP 124 / 68; Pulse 92; Resp 17 S; Pulse Ox 96% on R/A; ha1 20:35 BP 121 / 71; Pulse 92; Resp 17 S; Temp 99.7(O); Pulse Ox 96% on R/A; ha1 21:29 BP 120 / 69; Pulse 89; Resp 18 S; Pulse Ox 96% on R/A; ha1 ED Course: 18:19 Patient arrived in ED. im 18:20 Karin Boles PA-C is PHCP. sb4 18:20 Nevaeh Chiang MD is Attending Physician. sb4 18:28 Triage completed. iw 18:28 Arm band placed on. iw 18:38 Joanne Crocker, GABY is Primary Nurse. db 18:38 First set of blood cultures drawn. db 18:50 Second set of blood cultures drawn. Inserted saline lock: 20 gauge in left antecubital db area, using aseptic technique. Blood collected. 19:12 Patient has correct armband on for positive identification. Bed in low position. Call db light in reach. Side rails up X 1. 19:48 Blood Culture Adult (2) Sent. sb4 20:23 CT Abd/Pelvis - IV Contrast Only In Process Unspecified. EDMS 21:30 Provided Education on: follow ups. ha1 21:30 No provider procedures requiring assistance completed. IV discontinued, intact, ha1 bleeding controlled, No redness/swelling at site. Pressure dressing applied. Administered Medications: 19:20 Drug: Acetaminophen PO 1000 mg Route: PO; ha1 20:50 Follow up: Response: No adverse reaction; Temperature is decreased ha1 19:40 Drug: Rocephin IV 1 grams Route: IV; Rate: calculated rate; Site: left antecubital; ha1 21:23 Follow up: Response: No adverse reaction; IV Status: Completed infusion; IV Intake: [id number] 21:15 Drug: Ketorolac IVP 30 mg Route: IVP; Site: left antecubital; ha1 21:23 Follow up: Response: No adverse reaction ha1 Medication: 21:00 VIS not applicable for this client. ha1 Intake: 21:23 IV: 50ml; Total: 50ml. ha1 Outcome: 21:04 Discharge ordered by . sb4 21:30 Discharged to home ambulatory, with family. ha1 21:30 Condition: stable 21:30 Discharge instructions given to patient, family, Instructed on discharge instructions, follow up and referral plans. medication usage, Demonstrated understanding of instructions, follow-up care, medications, Prescriptions given X 1. 21:31 Patient left the ED. ha1 Signatures: Dispatcher [employer] EDAlexia Joya RN RN iw Maria Elena Pan RN RN ha1 Joanne Crocker RN RN db Brown, Sophia, PA-C PA-C sb4 Trinidad Dumont Corrections: (The following items were deleted from the chart) 18:29 18:28 BP 154 / 75; Resp 18bpm; Pulse Ox 98% RA; Temp 102.4F; iw iw 18:31 18:28 BP 154 / 75; Pulse 94bpm; Resp 18bpm; Pulse Ox 98% RA; Temp 102.4F; iw iw
--- NOTE | 2022-11-27 21:04 | EDPHYS ---
Physician Documentation [facility] Name: José Miguel Wong Age: 67 yrs Sex: Female : 1955 Arrival Date: 11/27/2022 Time: 18:17 Bed 19 Private MD: ED Physician Nevaeh Chiang HPI: 11/27 18:37 This 67 yrs old Female presents to ER via Wheelchair with complaints of sb4 shakes, Fever, Back Pain. 18:37 Onset: The symptoms/episode began/occurred suddenly. Associated signs and symptoms: sb4 Pertinent positives: dysuria, fever, Pertinent negatives: abdominal pain, chest pain, congestion, cough, headache, shortness of breath, vomiting. Patient reports dysuria 3 days ago. She took some Azo and has not had any dysuria since. Today she was running errands and started feeling extremely cold and shaking profusely. She denies any chest pain, shortness of breath, nausea, vomiting. She does endorse some lower back pain, but attributed that to her chronic back pain. Historical: - Allergies: 18:28 No Known Allergies; iw - PMHx: 18:28 Hypercholesterolemia; iw - PSHx: 18:28 Appendectomy; hysterectomy; mastectomy with reconstruction; right; iw - Immunization history:: Adult Immunizations. - Social history:: Smoking status: unknown. ROS: 18:37 Cardiovascular: Negative for chest pain, palpitations, and edema, Respiratory: Negative sb4 for shortness of breath, cough, wheezing, and pleuritic chest pain, Abdomen/GI: Negative for abdominal pain, nausea, vomiting, diarrhea, and constipation. 18:37 Constitutional: Positive for chills, fever, Negative for body aches, fatigue. 18:37 Back: Positive for flank pain, bilaterally. 18:37 : Positive for burning with urination, Negative for small amounts, hematuria, difficulty urinating, foul smelling urine. 18:37 MS/extremity: 18:37 All other systems are negative. Exam: 18:37 Head/Face: Normocephalic, atraumatic. Eyes: Extra-ocular motions intact. Periorbital sb4 areas with no swelling, redness, or edema. ENT: Mucous membranes moist. Cardiovascular: Regular rate and rhythm with a normal S1 and S2. Respiratory: Lungs have equal breath sounds bilaterally, clear to auscultation and percussion. No rales, rhonchi or wheezes noted. No increased work of breathing, no retractions or nasal flaring. Abdomen/GI: Soft, non-tender, no distension. Skin: Warm, dry with normal turgor. Normal color with no rashes, no lesions, and no evidence of cellulitis. MS/ Extremity: Pulses equal, no cyanosis. Neurovascular intact. Full, normal range of motion. 18:37 Constitutional: The patient appears alert, awake, uncomfortable, Shaking Vital Signs: 18:28 BP 154 / 75; Pulse 94; Resp 18; Temp 102.4; Pulse Ox 96% on R/A; iw 18:36 Weight 62.6 kg; iw 19:30 BP 124 / 68; Pulse 92; Resp 17 S; Pulse Ox 96% on R/A; ha1 20:35 BP 121 / 71; Pulse 92; Resp 17 S; Temp 99.7(O); Pulse Ox 96% on R/A; ha1 21:29 BP 120 / 69; Pulse 89; Resp 18 S; Pulse Ox 96% on R/A; ha1 MDM: 18:20 Patient medically screened. sb4 18:37 Differential diagnosis: UTI, sepsis, pyelonephritis, nephrolithiasis, ureterolithiasis, sb4 COVID, flu. 21:02 Data reviewed: vital signs, nurses notes, lab test result(s), EKG, radiologic studies, sb4 and as a result, I will discharge patient. Consideration of Admission/Observation Escalation of care including admission/observation considered. Historians other than the Patient: Spouse/Significant Other: spouse. Daughter/Son: daughter. Counseling: I had a detailed discussion with the patient and/or guardian regarding: the historical points, exam findings, and any diagnostic results supporting the discharge/admit diagnosis, lab results, radiology results, to return to the emergency department if symptoms worsen or persist or if there are any questions or concerns that arise at home. 21:03 Medication response: acetaminophen administration has lowered the patient's temperature.sb4 11/27 18:35 Order name: Blood Culture Adult (2) sb4 11/27 18:35 Order name: CBC with Diff; Complete Time: 20:34 sb4 11/27 18:35 Order name: CMP; Complete Time: 19:24 sb4 11/27 18:35 Order name: Lactate w/ 2H reflex if indic.; Complete Time: 19:26 sb4 11/27 18:35 Order name: Protime (+inr); Complete Time: 19:25 sb4 11/27 18:35 Order name: Ptt, Activated; Complete Time: 19:25 sb4 11/27 18:41 Order name: SARS RAPID; Complete Time: 19:51 sb4 11/27 18:41 Order name: Flu; Complete Time: 20:04 sb4 11/27 18:44 Order name: Urinalysis w/ reflexes; Complete Time: 18:47 EDMS 11/27 18:49 Order name: Urine Microscopic Only; Complete Time: 18:55 EDMS 11/27 18:55 Order name: Urine Culture EDGA 11/27 19:46 Order name: Strep sb4 11/27 20:58 Order name: Throat Culture EDMS 11/27 20:58 Order name: CBC Smear Scan EDGA 11/27 19:24 Order name: CT Abd/Pelvis - IV Contrast Only; Complete Time: 20:34 sb4 11/27 18:35 Order name: EKG; Complete Time: 18:36 sb4 11/27 18:35 Order name: Accucheck; Complete Time: 19:30 sb4 11/27 18:35 Order name: Cardiac monitoring; Complete Time: 19:06 sb4 11/27 18:35 Order name: EKG - Nurse/Tech; Complete Time: 19:06 sb4 11/27 18:35 Order name: IV Saline Lock - Large Bore; Complete Time: 19:06 sb4 11/27 18:35 Order name: Labs collected and sent; Complete Time: 19:06 sb4 11/27 18:35 Order name: O2 Per Protocol; Complete Time: 19:30 sb4 11/27 18:35 Order name: O2 Sat Monitoring; Complete Time: 19:07 sb4 11/27 18:35 Order name: Vital Signs; Complete Time: 19:07 sb4 EC:06 Rate is 90 beats/min. Rhythm is regular, Normal Sinus Rhythm. OH interval is normal at sb4 122 msec. QRS interval is normal at 92 msec. QT interval is normal at [address] changes noted. Clinical impression: Normal ECG. Interpreted by me. Reviewed by me. Administered Medications: 19:20 Drug: Acetaminophen PO 1000 mg Route: PO; ha1 20:50 Follow up: Response: No adverse reaction; Temperature is decreased ha1 19:40 Drug: Rocephin IV 1 grams Route: IV; Rate: calculated rate; Site: left antecubital; ha1 21:23 Follow up: Response: No adverse reaction; IV Status: Completed infusion; IV Intake: [id number] 21:15 Drug: Ketorolac IVP 30 mg Route: IVP; Site: left antecubital; ha1 21:23 Follow up: Response: No adverse reaction ha1 Disposition Summary: 11/27/22 21:04 Discharge Ordered Location: Home sb4 Problem: new sb4 Symptoms: have improved sb4 Condition: Stable sb4 Diagnosis - UTI/ Urinary tract infection, site not specified sb4 Followup: sb4 - With: Private Physician - When: As needed - Reason: Recheck today's complaints, Continuance of care, Re-evaluation by your physician Discharge Instructions: - Discharge Summary Sheet sb4 - Urinary Tract Infection, Adult, [id number] sb4 - Fever, Adult, [id number] sb4 Forms: - Medication Reconciliation Form sb4 - Thank You Letter sb4 - Antibiotic Education sb4 - Prescription Opioid Use sb4 - Patient Portal Instructions sb4 Prescriptions: - cefpodoxime 100 mg Oral Tablet - take 1 tablet by ORAL route every 12 hours for 10 days take with food; 20 sb4 tablet; Refills: 0, Product Selection Permitted Signatures: Dispatcher [employer] Alexia Redd RN RN Maria Elena Pan RN RN ha1 Karin Boles PA-C PASean sb4 Corrections: (The following items were deleted from the chart) 18:49 18:31 Urinalysis+U.LAB.BRZ ordered. EDMS EDMS 18:50 18:36 Urinalysis W/Microscopic+U.LAB.BRZ ordered. EDMS EDMS
[2022-11-27] MEDS ORDERED: KETOROLAC 30 MG/ML INJ ONE (21:21)
[2022-11-27 21:34] VITALS: O2SAT 96
[2022-11-27 21:38] VITALS: TEMP 99.7
[2022-11-27 21:39] VITALS: BP 120/69
--- NOTE | 2022-11-29 13:04 | EKG ---
Test Date: 2022-11-27 Test Time: 19:03:19 [employer] Editor: YUNIOR MEASUREMENT RESULTS: Intervals: Rate: 90 CO: 122 QRSD: 92 QT: 360 QTc: 440 Panna Maria: P: 71 CO: 122 QRS: 14 T: 53 INTERPRETIVE STATEMENTS: Normal sinus rhythm Normal ECG Compared to ECG 11/05/2008 12:06:41 No significant changes Electronically Signed On 11-29-22 13:03:24 CDT by Leroy Milner
== END 2022-11-27 21:31 | disposition home or self-care (01) ==
LOC: ER 18:17
DX: N39.0 Urinary tract infection, site not specified (principal); Z20.822 Contact with and (suspected) exposure to COVID-19
CPT/HCPCS: 96365; 93005; 87040 ×2; 87070; 87088; 85025; 87086; 36415; 87205 ×4; 85610; 87081; 83605; 85730; 87077; 87186; 80053; 87804 ×2; 74177; 96375; 99284; 96366; 87811; Q9967; J0696; 81003; 81015